=== PATIENT | female | born 1995 | race Caucasian/White ===

== ENCOUNTER 2020-01-19 18:04 | Emergency (ER) | payer OTHER, MEDICAID ==
--- OUTSIDE RECORDS SUMMARY | 2020-01-19 18:13 | XMS REPORT | Continuity of Care Document ---
:1995 External Reference #:[id number] Author Name Jl Farmer M.D. (transmitted by agent of provider Irma Gao) Address [address] [place] [id number] Care Team Providers Name Role Phone Reed Russo MD - Family Care Team Information [employer] Medicine Problems Active Problems Provider Date Epidermoid cyst Jl Farmer M.D. Onset: 10/21/2018 Social History Type Date Description Comments Sex Unknown Tobacco Use Start: Unknown Never Smoked Cigarettes ETOH Use Never used alcohol Allergies, Adverse Reactions, Alerts Active Allergies Reaction Severity Comments Date Erythromycin 10/19/2018 Diphenhydramine 10/19/2018 Medications Active Medications SIG Qnty Indications Ordering Provider Date Minocin 1 po qd Unknown 50mg Capsules Hydroxyzine HCL 1 tab by mouth 90tabs Reed Russo 25mg every day MD Eder Tablets Minocycline HCL [facility] 75mg Capsules Immunizations Description No Information Available Vital Signs Date Vital Result Comment 11/19/2018 2:53pm BP Systolic Sitting Right Arm 108 mmHg BP Diastolic Sitting Right Arm 68 mmHg Height 67 inches 5'7" Weight 169.00 lb BMI (Body Mass Index) 26.5 kg/m2 BSA (Body Surface Area) 1.88 m2 [place] body weight in kilograms 61 kg 11/11/2018 9:07am BP Systolic 115 mmHg BP Diastolic 76 mmHg Heart Rate 91 /min Respiratory Rate 18 /min Height 67 inches 5'7" Weight 168.00 lb BMI (Body Mass Index) 26.3 kg/m2 BSA (Body Surface Area) 1.88 m2 [place] body weight in kilograms 61 kg O2 % BldC Oximetry 100 % Results Description No Information Available Procedures Description No Information Available Medical Devices Description No Information Available Encounters Description No Information Available Assessments Description No Information Available Plan of Treatment 11/19/2018 - Jl Farmer M.D.L72.3 Sebaceous cystComments:Doing well following cyst excision. Pleased. Pathology report reviewed with Enedelia and her father.Questions addressed. As needed continued follow-up. Functional Status Description No Information Available Mental Status Description No Information Available Referrals Description No Information Available
[2020-01-19 19:02] VITALS: BP 102/67
--- NOTE | 2020-01-19 19:58 | UC ---
Respiratory Complaint HPI - HPI Summary HPI Summary: Pt is accompanied by mother. Mom reports that pt was premie at 33 weeks and received surfactant and has a long history of respiratory "issues" throughout her life. Mom states that pt has been coughing X 2 weeks, worse at night and it is not improving. - History of Current Complaint Chief Complaint: UCGeneralIllness Stated Complaint: COUGH Time Seen by Provider: 01/19/20 19:51 Hx Obtained From: Patient, Family/Survey Researcher Hx Last Menstrual Period: 01/09/20 ?: No Onset/Duration: Sudden Onset, Lasting Weeks, Still Present Timing: Intermittent Episodes Severity Initially: Mild Severity Currently: Moderate Pain Intensity: 0 Character: Cough: Nonproductive Aggravating Factors: Deep Breaths, Recumbent Position Alleviating Factors: Nothing Associated Signs And Symptoms: Positive: Wheezing Related History: Seasonal Allergies - Risk Factors Pulmonary Embolism Risk Factors: Negative Cardiac Risk Factors: Negative Pseudomonas Risk Factors: Chronic Lung Disease Tuberculosis Risk Factors: Negative - Allergies/Home Medications Allergies/Adverse Reactions: Allergies Allergy/AdvReac Type Severity Reaction Status Date / Time diphenhydramine AdvReac See Comment Verified 01/19/20 19:03 erythromycin base AdvReac Hives Verified 01/19/20 19:03 Home Medications: Home Medications Fluticasone NASAL SPRAY 50MCG* [Flonase NASAL SPRAY 50MCG*] 2 spray BOTH NARES DAILY 01/19/20 [History Confirmed 01/19/20] Guaifenesin/Pseudoephedrne HCl [Mucinex D ER 600-60 mg Tablet] 1 each PO BID 09/29 [History Confirmed 01/19/20] hydrOXYzine HCL TAB* [Atarax 25 MG TAB*] 25 mg PO BID 01/19/20 [History Confirmed 01/19/20] predniSONE 10 mg TAB [Deltasone 10 MG TAB*] 30 mg PO DAILY #18 tab 01/19/20 [Rx] PMH/Surg Hx/FS Hx/Imm Hx Previously Healthy: Yes - premie at 33 weeks, has cognitive delay - Surgical History Surgical History: Yes Surgery Procedure, Year, and 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 - Family History Known Family History: Positive: Cardiac Disease - Social History Occupation: Employed Part-time, Disabled Lives: With Family Alcohol Use: None Substance Use Type: None Smoking Status (MU): Never Smoked Tobacco Have You Smoked in the Last Year: No - Immunization History Vaccination Up to Date: Yes Review of Systems All Other Systems Reviewed And Are Negative: Yes Constitutional: Positive: Negative Skin: Positive: Negative Eyes: Positive: Negative ENT: Positive: Negative Respiratory: Positive: Cough Cardiovascular: Positive: Negative Gastrointestinal: Positive: Negative Genitourinary: Positive: Negative Motor: Positive: Negative Neurovascular: Positive: Negative Musculoskeletal: Positive: Negative Neurological/Mental Status: Positive: Negative Psychological: Positive: Negative Is Patient Immunocompromised?: No Physical Exam Triage Information Reviewed: Yes Appearance: Well-Appearing Vital Signs: Initial Vital Signs Temp 98.1 F 01/19/20 19:00 Pulse 64 01/19/20 19:00 Resp 16 01/19/20 19:00 BP 102/67 01/19/20 19:00 Pulse Ox 100 01/19/20 19:00 Vital Signs Reviewed: Yes Eye Exam: Normal ENT Exam: Normal Dental Exam: Normal Neck exam: Normal Respiratory Exam: Normal Respiratory: Positive: Normal breath sounds Cardiovascular Exam: Normal Musculoskeletal Exam: Normal Neurological Exam: Normal Psychological Exam: Normal Skin Exam: Normal Respiratory Course/Dx - Differential Dx/Diagnosis Differential Diagnosis/HQI/PQRI: Bronchitis Provider Diagnosis: Cough in adult Discharge ED - Sign-Out/Discharge Documenting (check all that apply): Patient Departure All imaging exams completed and their final reports reviewed: No Studies - Discharge Plan Condition: Stable Disposition: HOME Prescriptions: predniSONE 10 mg TAB [Deltasone 10 MG TAB*] 30 mg PO DAILY #18 tab Patient Education Materials: Acute Cough (ED) Referrals: Reed Russo MD [Primary Care Provider] - If Needed - Billing Disposition and Condition Condition: STABLE Disposition: Home
== END 2020-01-19 20:12 | disposition home or self-care (01) ==
LOC: UCCORT 18:04
DX: R05 Cough (principal); Z88.8 Allergy status to other drugs, medicaments and biological substances; Z88.1 Allergy status to other antibiotic agents
CPT/HCPCS: 99201; G0463